=== PATIENT | male | born 1965 | race Caucasian/White ===

== ENCOUNTER 2017-01-19 17:00 | Inpatient (IN) | payer SELFPAY ==
[~2017-01-19] VITALS: Ht 182.9 cm; Wt 93.0 kg
[2017-01-19 17:35] VITALS: BP 125/82
--- NOTE | 2017-01-19 19:12 | NUR ---
Patient ambulated to bed 4. RN evaluating patient at bedside.
--- NOTE | 2017-01-19 19:15 | NUR ---
PATIENT PRESENTS TO ED WITH C/O LEFT TESTICULAR PAIN SINCE YESTERDAY WITH DIARRHEA TODAY. PT DENIES N/V. PT HAS REDNESS AROUND SCROTAL AREA. AAOX4 WITH EVEN AND STEADY GAIT; LUNGS CLEAR BL; HR EVEN AND REGULAR; PT DENIES ANY FEVER, CP, SOB, OR COUGH AT THIS TIME; PATIENT STATES PAIN OF 10/10 AT THIS TIME; VSS; PATIENT POSITIONED FOR COMFORT; HOB ELEVATED; BEDRAILS UP X2; BED DOWN. ER MD MADE AWARE OF PT STATUS.
[2017-01-19] MEDS ORDERED: KETOROLAC 60 MG/2 ML VIAL IM ONE (19:30)
[2017-01-19 20:23] LABS: APPEARANCE,URINE SLIGHTLY HAZY (CLEAR); BILIRUBIN,URINE NEGATIVE (NEGATIVE); BLOOD, URINE 1+ (NEGATIVE); COLOR,URINE YELLOW (YELLOW); NITRITE, URINE NEGATIVE (NEGATIVE); UGLUCOSE NEGATIVE (NEGATIVE)
[2017-01-19 20:26] LABS: WBC,URINE 20-40 /HPF (0-5)
[2017-01-19 20:30] LABS: LEUKOCYTE ESTERASE ,URINE TRACE (NEGATIVE)
[2017-01-19 20:48] LABS: BASOPHILS # (AUTO) 0.1 K/uL (0.00-0.22); BASOPHILS % (AUTO) 0.4 % (0.0-2.0); EOSINOPHILS # (AUTO) 0.3 K/uL (0-0.4); HEMATOCRIT 40.3 % (36-52); HEMOGLOBIN 13.3 g/dL (12.0-18.0); LYMPHOCYTES # (AUTO) 1.2 K/uL (2.0-11.5); LYMPHOCYTES % (AUTO) 8.5 % (20.5-51.1); MEAN CORPUSCULAR HEMOGLOBIN 28 pg (27-31); MEAN CORPUSCULAR HGB CONC 33 g/dL (33-37); MEAN CORPUSCULAR VOLUME 85 fL (80-94); MONOCYTES # (AUTO) 1.1 K/uL (0.8-1.0); MONOCYTES % (AUTO) 7.9 % (1.7-9.3); NEUTROPHILS # (AUTO) 10.9 K/uL (1.8-7.7); NEUTROPHILS % (AUTO) 81.2 % (42.2-75.2); PLATELET COUNT (AUTO) 212 K/uL (140-450); RED BLOOD CELL COUNT(AUTO) 4.76 MIL/uL (4.20-6.10); RED CELL DISTRIBUTION WIDTH 13.3 % (11.6-13.7); WHITE BLOOD COUNT (AUTO) 13.6 K/uL (4.8-10.8)
[2017-01-19] MEDS ORDERED: DOXYCYCLINE 100 MG CAP PO ONE (20:50)
[2017-01-19] MEDS ORDERED: NACL 0.9% 1,000 ML IV ONE (20:55)
--- NOTE | 2017-01-19 20:55 | NUR ---
CALLED KURT-DINING SERVICE WORKER FOR MEDICATION, DOXYCYCLINE, NOT IN ER PYXIS.
[2017-01-19 21:01] LABS: ANION GAP 11.8 (8-16); CARBON DIOXIDE 25.4 mmol/L (21-32); CREATININE 1.2 mg/dL (0.7-1.3); POTASSIUM 4.2 mmol/L (3.5-5.1)
[2017-01-19 21:07] LABS: ALBUMIN 3.4 g/dL (3.4-5.0); TOTAL BILIRUBIN 0.6 mg/dL (0.0-1.0)
[2017-01-19] MEDS ORDERED: ONDANSETRON 4 MG/2 ML VIAL IVP PRN (21:25)
[2017-01-19] MEDS ORDERED: ACETAMINOPHEN 325 MG TAB PO PRN (21:25)
[2017-01-19] MEDS ORDERED: LEVOFLOXACIN 500 MG/D5W PREMIX 100 ML IV ONE (21:35)
[2017-01-19 21:56] LABS: PROTHROMBIN TIME 10.4 secs (10.8-13.4)
[2017-01-19 22:01] LABS: CHOL/HDL RATIO 2.4 (1-4.5); FREE T4 (FREE THYROXINE) 0.89 ng/dL (0.76-1.46); PHOSPHORUS 3.2 mg/dL (2.5-4.9); THYROID STIMULATING HORMONE 0.62 uIU/mL (0.34-3.74)
[2017-01-19 22:51] LABS: BARBITURATE, URINE NEG. ng/ml (NEG <=200); BENZODIAZEPINE, URINE NEG. ng/mL (NEG <=200); CANNABINOID, URINE NEG. ng/mL (NEG <=50); COCAINE, URINE POS. ng/mL (NEG <=300); OPIATE, URINE NEG. ng/mL (NEG <=2000); PHENCYCLIDINE SCREEN,URINE NEG. ng/mL (NEG <=25)
--- NOTE | 2017-01-19 23:30 | NUR ---
Patient will be admitted to care of DR DINERO. Admited to TELE. Will go to room 106A. Belongings list completed. Report to MILANA HAMM.
[2017-01-19 23:45] VITALS: BP 129/89
[2017-01-19] MEDS: NACL 0.9% 1,000 ML IV SCH (23:45)
[2017-01-20] MEDS ORDERED: cefTRIAXone 1,000 MG VIAL ONE (01:15)
--- NOTE | 2017-01-20 04:01 | NUR ---
MADE ROUNDS. IV ACCESS IS PATENT AND INTACT. PT IS SLEEPING, SHOWING NO S/S OF DISCOMFORT. WILL CONTINUE TO MONITOR.
[2017-01-20 04:20] VITALS: BP 136/86
--- NOTE | 2017-01-20 06:00 | NUR ---
PICKED UP VIA WHEELCHAIR FOR CT OF ABDOMEN/PELVIS.
--- NOTE | 2017-01-20 06:15 | NUR ---
BACK FROM CT DEPT. PT IS STABLE WITH NO C/O PAIN. SCD APPLIED TO BLE. WILL FOLLOW UP ON CT RESULTS.
--- NOTE | 2017-01-20 07:16 | NUR ---
PATIENT HAS BEEN SCREENED AND CATEGORIZED MODERATE NUTRITION RISK. PATIENT WILL BE SEEN WITHIN 3-5 DAYS OF ADMISSION. 01/22/17-01/24/[address]
--- NOTE | 2017-01-20 07:35 | NUR ---
ENDORSED PT TO AM NURSE. PT IN STABLE CONDITION
--- NOTE | 2017-01-20 07:36 | NUR ---
PATIENT REPORT RECEIVED FROM EVENING NURSE. PATIENT IN STABLE CONDITION. NO SIGNS AND SYMPTOMS OF DISTRESS NOTED AT THIS TIME. IV SITE NOTED RIGHT HAND. IVF INFUSING WELL. BED IN LOWEST POSITION WITH SIDE RAILS UP AND CALL-LIGHT WITHIN REACH. WILL CONTINUE TO MONITOR.
[2017-01-20 08:00] VITALS: BP 141/92
[2017-01-20] MEDS: LACTOBACILLUS RHAMNOSUS GG 1 EACH CAP PO SCH (09:08)
[2017-01-20] MEDS: DOXYCYCLINE 100 MG CAP PO SCH ×2 (09:08→20:06)
[2017-01-20] MEDS: PANTOPRAZOLE 40 MG INJ VIAL IVP SCH (09:09)
[2017-01-20] MEDS: DOCUSATE SODIUM 100 MG GELCAP PO SCH ×2 (09:09→20:07)
--- NOTE | 2017-01-20 09:24 | NUR ---
PATIENT COMPLAINED OF 9/10 LOWER BODY PAIN. PATIENT MEDICATED ORDERED
[2017-01-20] MEDS: HYDROcodone/APAP 7.5/325 MG 1 TAB PO PRN ×2 (09:25→20:07)
--- NOTE | 2017-01-20 10:24 | NUR ---
CHECKED ON PATIENT. PATIENT IS ASLEEP. NO SIGNS AND SYMPTOMS OF DISTRESS NOTED AT THIS TIME. BED IN LOWEST POSITION, SIDE RAILS UP, AND CALL LIGHT WITHIN REACH. WILL CONTINUE TO MONITOR.
--- NOTE | 2017-01-20 11:25 | NUR ---
PATIENT SEEN BY DR. CHRISTIAN. PATIENT'S DAUGHTER PRESENT IN THE ROOM Addendum: 01/20/17 at 1910 by Katlyn Cote RN WRONG PATIENT
[2017-01-20 12:00] VITALS: BP 119/79
[2017-01-20 16:00] VITALS: BP 126/79
[2017-01-20] MEDS: NACL 0.9% 1,000 ML IV SCH (17:43)
--- NOTE | 2017-01-20 19:27 | NUR ---
PATIENT REPORT GIVEN AT BEDSIDE. PATIENT IS IN STABLE CONDITION.
--- NOTE | 2017-01-20 19:28 | NUR ---
RECEIVED REPORT FROM DAY RN FOR CONTINUITY OF CARE. PATIENT IS ALERT AND ORIENTED X4, DISCUSSED PLAN OF CARE WITH PATIENT, VERBALIZED UNDERSTANDING. SHIFT ASSESSMENT DONE, VITAL SIGNS STABLE. NO RESPIRATORY DISTRESS NOTED ON ROOM AIR. PATIENT C/O PAIN, WILL MEDICATE PER MD ORDER. IV TO RT HAND PATENT AND INFUSING FLUIDS WELL. SAFETY PRECAUTIONS ENFORCED, CALL LIGHT WITHIN REACH. WILL CONTINUE TO MONITOR.
[2017-01-20 20:00] VITALS: BP 127/82
--- NOTE | 2017-01-20 20:07 | NUR ---
DUE MEDICATIONS ADMINISTERED, TOLERATED WELL AND VERBALIZED UNDERSTANDING. PATIENT AT BEDSIDE STATES, " I WANT TO SPEAK TO A DOCTOR" PAGED DR. EDUARDO DR IN TO SEE PATIENT AND UPDATE HIM ON PLAN OF CARE.
--- NOTE | 2017-01-20 22:00 | NUR ---
PATIENT SLEEPING IN BED, NO DISTRESS NOTED, CALL LIGHT WITHIN REACH, WILL CONTINUE TO MONITOR.
[2017-01-21] VITALS: BP 136/89
--- NOTE | 2017-01-21 | NUR ---
VITAL SIGNS STABLE, PATIENT AMBULATED TO RESTROOM, NO DISTRESS OR DISCOMFORT NOTED. CALL LIGHT WITHIN REACH.
--- NOTE | 2017-01-21 02:12 | NUR ---
PATIENT ASLEEP AT THIS TIME, CALL LIGHT WITHIN REACH. SAFETY MEASURES ENFORCED, WILL CONTINUE TO MONITOR.
--- NOTE | 2017-01-21 04:27 | NUR ---
PATIENT TEMP 100.4, ADMINISTERED TYLENOL PER MD ORDER. PATIENT RESTING, NO DISTRESS NOTED. CALL LIGHT WITHIN REACH.
--- NOTE | 2017-01-21 06:00 | NUR ---
PATIENT TEMP DOWN TO 98.9, ALL NEEDS MET AT THIS TIME, WILL CONTINUE TO MONITOR.
[2017-01-21 06:02] LABS: BASOPHILS # (AUTO) 0.1 K/uL (0.00-0.22); BASOPHILS % (AUTO) 0.5 % (0.0-2.0); EOSINOPHILS # (AUTO) 0.3 K/uL (0-0.4); EOSINOPHILS % (AUTO) 2.5 % (0.0-4.0); HEMATOCRIT 41.8 % (36-52); HEMOGLOBIN 13.7 g/dL (12.0-18.0); LYMPHOCYTES # (AUTO) 1.3 K/uL (2.0-11.5); LYMPHOCYTES % (AUTO) 9.5 % (20.5-51.1); MEAN CORPUSCULAR HEMOGLOBIN 28 pg (27-31); MEAN CORPUSCULAR HGB CONC 33 g/dL (33-37); MEAN CORPUSCULAR VOLUME 84 fL (80-94); MONOCYTES # (AUTO) 1.2 K/uL (0.8-1.0); MONOCYTES % (AUTO) 8.7 % (1.7-9.3); NEUTROPHILS # (AUTO) 10.3 K/uL (1.8-7.7); NEUTROPHILS % (AUTO) 78.8 % (42.2-75.2); PLATELET COUNT (AUTO) 222 K/uL (140-450); RED BLOOD CELL COUNT(AUTO) 4.95 MIL/uL (4.20-6.10); RED CELL DISTRIBUTION WIDTH 12.7 % (11.6-13.7)
[2017-01-21 06:25] LABS: ANION GAP 13.5 (8-16); CARBON DIOXIDE 24.4 mmol/L (21-32); CREATININE 1.1 mg/dL (0.7-1.3); POTASSIUM 3.9 mmol/L (3.5-5.1)
[2017-01-21 06:34] LABS: MAGNESIUM 1.8 mg/dL (1.8-2.4); PHOSPHORUS 3.7 mg/dL (2.5-4.9)
--- NOTE | 2017-01-21 07:12 | NUR ---
ENDORSED PATIENT TO DAY RN FOR CONTINUITY OF CARE, PATIENT IS IN STABLE CONDITION.
--- NOTE | 2017-01-21 07:15 | NUR ---
RECEIVED PATIENT REPORT FROM EVENING NURSE. PATIENT IS AWAKE, ALERT AND ORIENTED. PATIENT DENIES PAIN AT THIS TIME. NO SIGNS AND SYMPTOMS OF DISTRESS NOTED. IV SITE NOTED ON RIGHT HAND, ASYMPTOMATIC, INTACT, PATENT. IVF INFUSING WELL. BED IN LOWEST POSITION, SIDE RAILS UP AND CALL LIGHT WITHIN REACH. WILL CONTINUE TO MONITOR.
[2017-01-21 07:26] LABS: WHITE BLOOD COUNT (AUTO) 13.2 K/uL (4.8-10.8)
[2017-01-21 07:49] VITALS: BP 121/76
[2017-01-21] MEDS ORDERED: CALCIUM CARB/VIT-D 500 MG/200 IU 1 TAB PO SCH (09:00)
[2017-01-21] MEDS: DOXYCYCLINE 100 MG CAP PO SCH (09:02)
[2017-01-21] MEDS: LACTOBACILLUS RHAMNOSUS GG 1 EACH CAP PO SCH (09:02)
[2017-01-21] MEDS: PANTOPRAZOLE 40 MG INJ VIAL IVP SCH (09:03)
[2017-01-21] MEDS: DOCUSATE SODIUM 100 MG GELCAP PO SCH (09:03)
--- NOTE | 2017-01-21 10:00 | NUR ---
CHECKED ON PATIENT. PATIENT IS ASLEEP. NO SIGNS AND SYMPTOMS OF DISTRESS NOTED. BED IN LOWEST POSITION, SIDE RAILS UP, AND CALL LIGHT WITHIN REACH.
[2017-01-21] MEDS ORDERED: DOXY100C9 PO ×2 (10:41→13:00)
--- NOTE | 2017-01-21 11:35 | NUR ---
PATIENT DISCHARGED HOME. VITAL SIGNS WITHIN NORMAL LIMITS. PATIENT IN STABLE CONDITION. DISCHARGE INSTRUCTIONS AND PRESCRIPTIONS GIVEN. PATIENT VERBALIZED UNDERSTANDING. DISCHARGE PAPERWORK SIGNED BY PATIENT. IV SITE DISCONTINUED. PATIENT LEFT WITH ALL HIS BELONGINGS.
[2017-01-24 18:34] LABS: CHLAMYDIA TRACHOMATIS AMP DNA POSITIVE (NEGATIVE)
== END 2017-01-21 11:35 | disposition home or self-care (01) | DRG 727 ==
LOC: MED 17:00 → MTU 21:31
PROVIDERS: ADMIT Family Medicine; ATTEND Family Medicine
DX: N45.1 Epididymitis (principal); N17.0 Acute kidney failure with tubular necrosis; N39.0 Urinary tract infection, site not specified; A64 Unspecified sexually transmitted disease; K21.9 Gastro-esophageal reflux disease without esophagitis; E66.3 Overweight; F14.10 Cocaine abuse, uncomplicated; F12.10 Cannabis abuse, uncomplicated; R31.9 Hematuria, unspecified; F17.210 Nicotine dependence, cigarettes, uncomplicated; Z68.32 Body mass index [BMI] 32.0-32.9, adult
CPT/HCPCS: 36415; 71010; 76870; 80048; 80053; 80305; 81001; 82140; 82150; 83036; 83605; 83690; 83735; 83880; 84100; 84439; 84443; 84484; 85025; 85610; 85730; 87040; 87081; 87086; 87491; 93005; 96361; 96365; 96372; 99285; C9113; J0696; J1885; J1956; J7030; J7060; Q0092

== ENCOUNTER 2019-02-02 15:50 | Inpatient (IN) | payer MEDICAID ==
[~2019-02-02] VITALS: Ht 182.9 cm; Wt 90.7 kg
[~2019-02-02 15:50] MED LIST: DOXY100C9 PO
[2019-02-02 15:52] VITALS: BP 118/85
--- NOTE | 2019-02-02 15:56 | NUR ---
PT WHEELCHAIRED TO BED 11
--- NOTE | 2019-02-02 16:04 | NUR ---
PT BIB FAMILY C/O BUG BITE TO R LEG X THIS AM. PAIN 8/10. REDNESS, SWELLING, AND WARMTH PRESENT TO LT LEG. PATIENT STATES HE FEELS DIZZY AND NAUSEATED, WITH DIFFUSE ABD PAIN. VSS. ER MD AT BEDSIDE AT THIS TIME PMH- DENIES RX- DENIES
[2019-02-02] MEDS ORDERED: NACL 0.9% 1,000 ML IV ONE (16:12)
[2019-02-02] MEDS ORDERED: KETOROLAC 30 MG/ML VIAL IVP ONE (16:15)
[2019-02-02] MEDS ORDERED: CLINDAMYCIN 600 MG in DEXTROSE 5% 50 ML IV ONE (16:15)
[2019-02-02] MEDS ORDERED: CLINDAMYCIN 600 MG/4 ML VIAL ONE (16:29)
[2019-02-02 16:35] LABS: BASOPHILS # (AUTO) 0.1 K/uL (0.00-0.22); BASOPHILS % (AUTO) 0.7 % (0.0-2.0); EOSINOPHILS # (AUTO) 0.1 K/uL (0-0.4); EOSINOPHILS % (AUTO) 0.4 % (0.0-4.0); HEMATOCRIT 42.3 % (36-52); HEMOGLOBIN 13.7 g/dL (12.0-18.0); LYMPHOCYTES % (AUTO) 5.8 % (20.5-51.1); MEAN CORPUSCULAR HEMOGLOBIN 28 pg (27-31); MEAN CORPUSCULAR HGB CONC 33 g/dL (33-37); MEAN CORPUSCULAR VOLUME 85.3 fL (80-94); MONOCYTES # (AUTO) 0.9 K/uL (0.8-1.0); MONOCYTES % (AUTO) 5.2 % (1.7-9.3); NEUTROPHILS # (AUTO) 15.2 K/uL (1.8-7.7); NEUTROPHILS % (AUTO) 87.9 % (42.2-75.2); PLATELET COUNT (AUTO) 231 K/uL (140-450); RED BLOOD CELL COUNT(AUTO) 4.96 MIL/uL (4.20-6.10); RED CELL DISTRIBUTION WIDTH 14.4 % (11.6-13.7); WHITE BLOOD COUNT (AUTO) 17.3 K/uL (4.8-10.8)
--- NOTE | 2019-02-02 16:41 | NUR ---
PT DIAPHORETIC AT THIS TIME, DENIES ANY NAUSEA OR DIZZINESS, BS 151, TEMPERATURE 98.2, VSS. Addendum: 02/02/19 at 1642 by CRUZ PINEDA KELLEYIED
[2019-02-02 16:47] LABS: ANION GAP 14.4 (8-16); CARBON DIOXIDE 27.2 mmol/L (21-32); CREATININE 1.4 mg/dL (0.7-1.3); POTASSIUM 4.6 mmol/L (3.5-5.1)
[2019-02-02 16:50] LABS: PROTHROMBIN TIME 9.8 secs (10.8-13.4)
--- NOTE | 2019-02-02 16:59 | NUR ---
PT STATES HE IS UNABLE TO VOID AT THIS TIME TO PROVIDE URINE SAMPLE, PT REFUSED STRAIGHT CATH. PINEDA DURAN INFORMED.
[2019-02-02 17:02] LABS: ALBUMIN 3.8 g/dL (3.4-5.0); TOTAL BILIRUBIN 0.8 mg/dL (0.0-1.0)
[2019-02-02 17:54] LABS: BARBITURATE, URINE NEG. ng/ml (NEG <=200); BENZODIAZEPINE, URINE NEG. ng/mL (NEG <=200); CANNABINOID, URINE NEG. ng/mL (NEG <=50); COCAINE, URINE POS. ng/mL (NEG <=300); OPIATE, URINE NEG. ng/mL (NEG <=2000); PHENCYCLIDINE SCREEN,URINE NEG. ng/mL (NEG <=25)
[2019-02-02] MEDS ORDERED: NACL 0.9% 2,000 ML IV ONE (18:30)
[2019-02-02] MEDS ORDERED: PIPERACILLIN/TAZOBACTAM 3.375 GM in DEXTROSE 5% 50 ML IV ONE (18:35)
[2019-02-02] MEDS ORDERED: MORPHINE SULFATE 2 MG/ML SYR IVP PRN (18:40)
[2019-02-02] MEDS ORDERED: ONDANSETRON 4 MG/2 ML VIAL IM/IVP PRN (18:40)
[2019-02-02] MEDS ORDERED: LORazepam 2 MG/ML VIAL IM/IVP PRN (18:40)
[2019-02-02] MEDS ORDERED: FAMOTIDINE 20 MG/2 ML VIAL IV PRN (18:40)
[2019-02-02] MEDS ORDERED: DOCUSATE SODIUM 100 MG GELCAP PO PRN (18:40)
[2019-02-02] MEDS ORDERED: HYDROcodone/APAP 7.5/325 MG 1 TAB PO PRN (18:40)
[2019-02-02] MEDS ORDERED: ACETAMINOPHEN 325 MG TAB PO PRN (18:40)
[2019-02-02] MEDS ORDERED: PIPERACILLIN/TAZOBACTAM 3.375 GM VIAL IV ONE (18:46)
--- NOTE | 2019-02-02 18:50 | NUR ---
Patient will be admitted to care of [facility]. Admited to TELE VIA [place] W/ VSS. Will go to room 120A. Belongings list completed. Report to FLORA CORTÉS.
--- NOTE | 2019-02-02 18:55 | NUR ---
REPORT RECEIVED FROM GRADUATE FELLOW CHIP AT BEDSIDE FOR CONTINUITY OF CARE. PATIENT IN STABLE CONDITION. ORIENTED PATIENT TO FLOOR, CALL LIGHT, BATHROOM, AND TV. VS WNL. WILL ENDORSE TO OUTDOOR ADVENTURE LEADER NURSE.
--- NOTE | 2019-02-02 19:05 | NUR ---
REPORT GIVEN TO CONSTRUCTION FIELD ENGINEER NURSE AT BEDSIDE FOR CONTINUITY OF CARE. PATIENT IN STABLE CONDITION.
--- NOTE | 2019-02-02 19:06 | NUR ---
RECEIVED BEDSIDE REPORT FROM AM SHIFT NURSE NEWLY ADMITTED FOR RIGHT LEG CELLULITIS. PT AO X 4, AMBULATORY, R LEG CELLULITIS, REDDISH IN COLOR, SWOLLEN, BUT SKIN INTACT. POC DISCUSSED. PT ORIENTED TO UNIT. PLACED IN LOW BED
[2019-02-02 19:13] LABS: APPEARANCE,URINE CLEAR (CLEAR); BILIRUBIN,URINE NEGATIVE (NEGATIVE); BLOOD, URINE NEGATIVE (NEGATIVE); COLOR,URINE YELLOW (YELLOW); LEUKOCYTE ESTERASE ,URINE NEGATIVE (NEGATIVE); NITRITE, URINE NEGATIVE (NEGATIVE); UGLUCOSE NEGATIVE (NEGATIVE)
[2019-02-02] MEDS ORDERED: INSULIN LISPRO SLIDING SCALE 100 UNITS/ML VIAL SUBQ PRN (19:30)
[2019-02-02] MEDS ORDERED: DEXTROSE 50% 50 ML SYR IVP PRN (19:30)
[2019-02-02] MEDS ORDERED: GLUCAGON 1 MG VIAL IVP PRN (19:30)
[2019-02-02 19:44] LABS: FREE T4 (FREE THYROXINE) 0.8 ng/dL (0.76-1.46); MAGNESIUM 1.8 mg/dL (1.8-2.4); PHOSPHORUS 3.6 mg/dL (2.5-4.9)
[2019-02-02 20:00] VITALS: BP 119/78
[2019-02-02 20:10] LABS: THYROID STIMULATING HORMONE 1.09 uIU/mL (0.34-3.74)
[2019-02-02] MEDS: BLOOD GLUCOSE MONITORING 1 DEV DEV FS SCH (20:10)
[2019-02-02] MEDS: NACL 0.9% 1,000 ML IV SCH (20:11)
--- NOTE | 2019-02-02 20:30 | NUR ---
GOT REPORT FROM LAB LACTIC ACID 2.[address] JEFFRIES. AWAITING FOR ORDERS
--- NOTE | 2019-02-02 22:51 | NUR ---
PT C/O OF 11/05 PAIN R LEG, GIVEN NORCO
[2019-02-03] VITALS: BP 119/74
--- NOTE | 2019-02-03 | NUR ---
PT WENT TO BATHROOM, STEADY GAIT, VOIDED
[2019-02-03] MEDS: PIPERACILLIN/TAZOBACTAM 3.375 GM in DEXTROSE 5% 50 ML IV SCH ×3 (01:24→05:58)
[2019-02-03] MEDS ORDERED: PIPERACILLIN/TAZOBACTAM 3.375 GM VIAL IV ONE ×2 (01:40→06:07)
--- NOTE | 2019-02-03 02:00 | NUR ---
FREQUENT CHECKS. NO COMPLAINTS OF PAIN. WILL CONTINUE TO MONITOR
[2019-02-03] MEDS ORDERED: CLINDAMYCIN 600 MG/4 ML VIAL ONE (03:20)
[2019-02-03 04:00] VITALS: BP 113/58
[2019-02-03] MEDS: NACL 0.9% 1,000 ML IV SCH ×3 (05:30→22:08)
[2019-02-03] MEDS: CLINDAMYCIN 600 MG in DEXTROSE 5% 50 ML IV SCH ×3 (05:52→20:59)
[2019-02-03] MEDS: BLOOD GLUCOSE MONITORING 1 DEV DEV FS SCH ×4 (05:59→21:05)
--- NOTE | 2019-02-03 06:16 | NUR ---
ZOSYN 4.5 GIVEN ORDERED, WILL MONITOR FOR ADVERSE EFFECTS. GIVEN PT SNACKS SOFT DIET TO AVOID ACIDITY
--- NOTE | 2019-02-03 06:51 | NUR ---
PT AWAKE, ALERT ORIENTED X 4, SEMI FOWLERS IN BED, PT IS AMBULATORY. PT IN STABLE CONDITION AT THIS TIME. WILL ENDORSE TO NEXT SHIFT
--- NOTE | 2019-02-03 07:15 | NUR ---
RECEIVED REPORT FROM GUEST ROOM ATTENDANT NURSE. PATIENT IS SLEEPING. IV TO RIGHT AC 20G, NS @100ML/HR. PATIENT IS A&O X 4. PATIENT IS FULL CODE, NKA. WILL CONTINUE TO MONITOR.
[2019-02-03 08:00] VITALS: BP 114/78
[2019-02-03 08:10] LABS: BASOPHILS % (AUTO) 0.3 % (0.0-2.0); EOSINOPHILS # (AUTO) 0.2 K/uL (0-0.4); EOSINOPHILS % (AUTO) 1.4 % (0.0-4.0); HEMATOCRIT 38.2 % (36-52); HEMOGLOBIN 12.4 g/dL (12.0-18.0); LYMPHOCYTES # (AUTO) 1.1 K/uL (2.0-11.5); LYMPHOCYTES % (AUTO) 10.2 % (20.5-51.1); MEAN CORPUSCULAR HEMOGLOBIN 28 pg (27-31); MEAN CORPUSCULAR HGB CONC 32 g/dL (33-37); MEAN CORPUSCULAR VOLUME 85.5 fL (80-94); MONOCYTES # (AUTO) 0.9 K/uL (0.8-1.0); MONOCYTES % (AUTO) 8.2 % (1.7-9.3); NEUTROPHILS % (AUTO) 79.9 % (42.2-75.2); PLATELET COUNT (AUTO) 207 K/uL (140-450); RED BLOOD CELL COUNT(AUTO) 4.47 MIL/uL (4.20-6.10); RED CELL DISTRIBUTION WIDTH 14.5 % (11.6-13.7); WHITE BLOOD COUNT (AUTO) 11.2 K/uL (4.8-10.8)
[2019-02-03 08:30] LABS: ANION GAP 11.9 (8-16); CARBON DIOXIDE 26.1 mmol/L (21-32); CREATININE 1.2 mg/dL (0.7-1.3)
[2019-02-03] MEDS: LACTOBACILLUS RHAMNOSUS GG 1 EACH CAP PO SCH (08:38)
--- NOTE | 2019-02-03 08:43 | NUR ---
ADMINISTERED MORNING MEDICATION. PT SITTING UP IN BED. PATIENT REFUSED HEPARIN AFTER ALL SIDE EFFECTS/PROS WERE EXPLAINED TO HIM
--- NOTE | 2019-02-03 10:27 | NUR ---
PT HAS BEEN TRANSFERRED TO [facility]. REMOVED TELE MONITOR AND INFORMED HEALTHCARE NETWORK CONSULTANT. PATIENT IS SITTING UP IN BED. NO COMPLAINTS AT THIS TIME
--- NOTE | 2019-02-03 12:30 | NUR ---
ADMINISTERED NEXT DOSE OF IV ANTIBIOTICS. PATIENT IS SITTING UP IN BED RESTING. NO COMPLAINTS AT THIS TIME. NO RESP DISTRESS, VISIBLE CHEST RISE AND FALL.
--- NOTE | 2019-02-03 13:50 | NUR ---
PATIENT IS RESTING IN BED, FRIEND IS AT BEDSIDE. NO COMPLAINTS AT THIS TIME.
--- NOTE | 2019-02-03 15:45 | NUR ---
SPOKE TO PATIENTS REGARDING PATIENTS STATUS. GAVE HER UPDATES AND INFORMED PATIENT OF HIS PLAN OF CARE.
[2019-02-03 16:00] VITALS: BP 110/79
--- NOTE | 2019-02-03 17:27 | NUR ---
PATIENT IS SLEEPING IN BED. VISIBLE CHEST RISE AND FALL NOTED. NO RESP DISTRESS. WILL ENDORSE TO NEXT SHIFT FOR CONTINUITY OF CARE.
--- NOTE | 2019-02-03 18:00 | NUR ---
PATIENT STATED TO FEELING SOB. NO VISIBLE RESP DISTRESS NOTED. CHECKED PATIENTS VITAL SIGNS, ALL WNL. O2 SATURATION AT 99%. ADMINISTERED ATIVAN TO PATIENT FOR ANXIETY PRN. WILL RE-ASSESS.
--- NOTE | 2019-02-03 18:46 | NUR ---
PATIENT STATED TO FEELING LESS ANXIOUS AND MUCH BETTER. PATIENT IS RESTING QUIETLY IN BED. WILL ENDORSE TO THORACIC SURGEON
--- NOTE | 2019-02-03 19:20 | NUR ---
RECEIVED BEDSIDE REPORT FROM DAY SHIFT NURSE. PATIENT IS AWAKE, ALERT AND COOPERATIVE. RESPIRATION EVEN UNLABORED ON ROOM AIR. NO DISTRESS NOTED. SKIN IS WARM AND DRY. RIGHT LEG CELLULITIS NOTED. IV PATENT AND INTACT. DENIES PAIN. PLAN OF CARE WAS DISCUSSED. ALL SAFETY MEASURES IN PLACE. BED IS AT LOW POSITION. CALL LIGHT WITHIN REACH AND VERBALIZES ITS USE. WILL CONTINUE TO MONITOR.
--- NOTE | 2019-02-03 20:00 | NUR ---
INITIAL ASSESSMENT DONE. VITALS WERE TAKEN. PATIENT IN STABLE CONDITION. WILL CONTINUE TO MONITOR.
--- NOTE | 2019-02-03 21:00 | NUR ---
ALL SCHEDULED MEDS WERE GIVEN PER ORDER. NO ASE NOTED. CALL LIGHT WITHIN REACH. WILL CONTINUE TO MONITOR.
--- NOTE | 2019-02-03 22:30 | NUR ---
PATIENT SLEEPING RESPIRATION EVEN UNLABORED ON ROOM AIR. NO DISTRESS NOTED. CALL LIGHT WITHIN REACH. WILL CONTINUE TO MONITOR.
[2019-02-04] VITALS: BP 115/71
--- NOTE | 2019-02-04 | NUR ---
VITALS WERE TAKEN. PATIENT IN STABLE CONDITION. NO DISTRESS NOTED. CALL LIGHT WITHIN REACH. WILL CONTINUE TO MONITOR.
--- NOTE | 2019-02-04 03:29 | NUR ---
CHECKED PATIENT. PATIENT SLEEPING RESPIRATION EVEN UNLABORED ON ROOM AIR. NO DISTRESS NOTED. WILL CONTINUE TO MONITOR.
[2019-02-04] MEDS: CLINDAMYCIN 600 MG in DEXTROSE 5% 50 ML IV SCH ×2 (04:28→13:48)
[2019-02-04] MEDS: BLOOD GLUCOSE MONITORING 1 DEV DEV FS SCH ×3 (06:18→16:30)
--- NOTE | 2019-02-04 06:40 | NUR ---
PATIENT SLEEPING RESPIRATION EVEN UNLABORED ON ROOM AIR. NO DISTRESS NOTED. WILL CONTINUE TO MONITOR.
[2019-02-04 06:57] LABS: BASOPHILS % (AUTO) 0.4 % (0.0-2.0); EOSINOPHILS # (AUTO) 0.3 K/uL (0-0.4); EOSINOPHILS % (AUTO) 2.3 % (0.0-4.0); HEMATOCRIT 41.2 % (36-52); HEMOGLOBIN 13.5 g/dL (12.0-18.0); LYMPHOCYTES # (AUTO) 1.2 K/uL (2.0-11.5); LYMPHOCYTES % (AUTO) 11.5 % (20.5-51.1); MEAN CORPUSCULAR HEMOGLOBIN 28 pg (27-31); MEAN CORPUSCULAR HGB CONC 33 g/dL (33-37); MEAN CORPUSCULAR VOLUME 85.3 fL (80-94); MONOCYTES # (AUTO) 0.9 K/uL (0.8-1.0); MONOCYTES % (AUTO) 8.3 % (1.7-9.3); NEUTROPHILS # (AUTO) 8.4 K/uL (1.8-7.7); NEUTROPHILS % (AUTO) 77.5 % (42.2-75.2); PLATELET COUNT (AUTO) 222 K/uL (140-450); RED BLOOD CELL COUNT(AUTO) 4.82 MIL/uL (4.20-6.10); RED CELL DISTRIBUTION WIDTH 14.3 % (11.6-13.7); WHITE BLOOD COUNT (AUTO) 10.8 K/uL (4.8-10.8)
--- NOTE | 2019-02-04 07:12 | NUR ---
ENDORSED PATIENT TO DAY SHIFT NURSE. PATIENT IN STABLE CONDITION.
--- NOTE | 2019-02-04 07:15 | NUR ---
RECEIVED PT FROM SECURITY ASSURANCE ANALYST NURSE, ROYAL, PT IS AWAKE AND LYING ON THE BED WITH SIDE RAILS UP AND CALL LIGHT WITHIN REACH, IV LINE ON THE RT AC G. 20 WITH NS I FUSING AST 100ML/HR, PT HAS A RT LEG CELLULITIS, ELEVATED IT ON A PILLOW. NO SIGN OF DISTRESS NOTED, PT DENIES PAIN. WILL MONITOR PT.
[2019-02-04 07:57] LABS: ANION GAP 15.2 (8-16); CARBON DIOXIDE 22.8 mmol/L (21-32); CREATININE 1.1 mg/dL (0.7-1.3)
[2019-02-04 08:03] LABS: PHOSPHORUS 3.2 mg/dL (2.5-4.9)
[2019-02-04 08:05] VITALS: BP 126/88
--- NOTE | 2019-02-04 08:31 | NUR ---
PATIENT HAS BEEN SCREENED AND CATEGORIZED HIGH NUTRITION RISK. PATIENT WILL BE SEEN WITHIN 1-2 DAYS OF ADMISSION. 02/04/19-02/05/[address]
[2019-02-04] MEDS: LACTOBACILLUS RHAMNOSUS GG 1 EACH CAP PO SCH (08:51)
[2019-02-04] MEDS: NACL 0.9% 1,000 ML IV SCH (08:57)
--- NOTE | 2019-02-04 08:57 | NUR ---
PT IS AWAKE AND IS LYING ON THE BED, ORAL AND SUBQ MEDICATIONS WERE GIVEN AND PT TOLERATED IT. WILL MONITOR PT.
--- NOTE | 2019-02-04 13:48 | NUR ---
PT IS AWAKE AND LYING ON THE BED AND IV MEDICATION WAS GIVEN VIA PIGGYBACK. WILL MONITOR PT.
[2019-02-04] MEDS ORDERED: CLIN300C5 PO (14:27)
[2019-02-04 16:00] VITALS: BP 124/85
--- NOTE | 2019-02-04 16:30 | NUR ---
DISCHARGED PT TO HOME WITH NEPHEW, DISCHARGED TEACHINGS AND MEDICATION INSTRUCTIONS GIVEN TO PT AND VERBALIZED UNDERSTANDING, IV LINE AND ARM BAND REMOVED AND PT IS STABLE AT THIS TIME.
== END 2019-02-04 16:30 | disposition home or self-care (01) | DRG 720 ==
LOC: MED 15:50 → MTU 18:26
PROVIDERS: ADMIT General Practice; ATTEND General Practice
DX: A41.9 Sepsis, unspecified organism (principal); N17.0 Acute kidney failure with tubular necrosis; J90 Pleural effusion, not elsewhere classified; E11.65 Type 2 diabetes mellitus with hyperglycemia; L03.115 Cellulitis of right lower limb; F15.10 Other stimulant abuse, uncomplicated; F14.10 Cocaine abuse, uncomplicated; F17.210 Nicotine dependence, cigarettes, uncomplicated; Z71.6 Tobacco abuse counseling; Z71.51 Drug abuse counseling and surveillance of drug abuser
CPT/HCPCS: 36415; 71045; 80048; 80053; 80305; 81003; 82140; 82150; 82550; 82948; 83036; 83605; 83690; 83735; 83880; 84100; 84439; 84443; 84484; 85025; 85610; 87040; 87081; 87086; 93005; 93925; 93970; 96365; 96375; 99285; G0482; J1644; J1885; J2060; J2543; J3490; J7030; J7060; Q0092